=== PATIENT | female | born 1990 | race Caucasian/White ===

== ENCOUNTER 2018-04-16 21:08 | Inpatient (IN) | payer OTHER ==
[2018-04-16] MEDS: SOD CHLORIDE 0.9% 1,000 ML IV ×2 (07:25→23:16)
[2018-04-16] MEDS: LACTATED RINGER'S 1,000 ML IV (22:33)
[2018-04-16 22:44] LABS: ADD UMIC YES; UR ASCORBIC ACID NEGATIVE (NEGATIVE); UR BACTERIA FEW /HPF (NONE SEEN); UR BILIRUBIN (Dip) NEGATIVE (NEGATIVE); UR BLOOD (Dip) NEGATIVE (NEGATIVE); UR CLARITY CLOUDY (CLEAR); UR COLOR YELLOW (YELLOW); UR GLUCOSE (Dip) NEGATIVE (NEGATIVE); UR KETONES (Dip) 1+ mg/dL (NEGATIVE); UR LEUKOCYTE ESTERASE (Dip) 3+ Leu/ul (NEGATIVE); UR MUCUS FEW /HPF (NONE SEEN); UR NITRITE (Dip) NEGATIVE (NEGATIVE); UR RBC 16 /HPF (0-5); UR SPECIFIC GRAVITY (Dip) 1.008 (1.003-1.030); UR SQUAMOUS EPITHELIAL CELL FEW /HPF (FEW); UR TOTAL PROTEIN (Dip) NEGATIVE (NEGATIVE); UR UROBILINOGEN (Dip) NEGATIVE (NEGATIVE); UR WBC 53 /HPF (0-5)
[2018-04-16] MEDS ORDERED: CEFTRIAXONE 1 GM/50 ML (PMX) 50 ML IVPB (23:00)
[2018-04-16] MEDS: CEFTRIAXONE 1 GM/50 ML (PMX) 50 ML IVPB (23:16)
[2018-04-17 00:44] LABS: ADD MAN DIFF? NO
[2018-04-17 00:46] LABS: BASOPHILS % 0.1 % (0.0-2.0); EOSINOPHILS % 0.1 % (0.0-7.0); HEMATOCRIT 32.7 % (37.0-47.0); HEMOGLOBIN 10.5 g/dl (12.0-16.0); LYMPHOCYTES # 0.8 10^3/ul (0.8-2.9); LYMPHOCYTES % 8.9 % (15.0-51.0); MEAN CORPUSCULAR HGB CONC 32.1 g/dl (32.0-37.0); MEAN CORPUSCULAR VOLUME 84.1 fl (82.0-101.0); MONOCYTE # 0.3 10^3/ul (0.3-0.9); MONOCYTES % 3.9 % (0.0-11.0); NEUTROPHIL # 7.6 10^3/ul (1.6-7.5); NEUTROPHILS % 86.5 % (39.0-77.0); PLATELET COUNT 164 10^3/UL (140-415); RED BLOOD COUNT 3.89 10^6/ul (4.20-5.40); RED CELL DISTRIBUTION WIDTH 14.2 % (11.5-14.5)
[2018-04-17 00:46] LABS: WHITE BLOOD COUNT 8.8 10^3/ul (4.8-10.8)
[2018-04-17 01:05] LABS: INR 0.93; PROTIME 12.6 Sec (11.9-14.9)
[2018-04-17 01:06] LABS: PARTIAL THROMBOPLASTIN TIME 31.4 Sec (25.0-35.0)
[2018-04-17] MEDS: LACTATED RINGER'S 1,000 ML IV* (07:00)
[2018-04-17] MEDS: SOD CHLORIDE 0.9% 1,000 ML IV ×3 (07:26→23:00)
[2018-04-17] MEDS: PRENATAL VITAMIN PO (09:14)
[2018-04-17] MEDS: FERROUS SULFATE (EC) 325 MG TAB PO (09:14)
[2018-04-17 15:35] LABS: RAPID PLASMA REAGIN NONREACTIVE (NR)
[2018-04-17] MEDS: CEFTRIAXONE 1 GM/50 ML (PMX) 50 ML IVPB (23:27)
[2018-04-18] MEDS: SOD CHLORIDE 0.9% 1,000 ML IV (06:52)
[2018-04-18] MEDS: PRENATAL VITAMIN PO (09:04)
[2018-04-18] MEDS: FERROUS SULFATE (EC) 325 MG TAB PO (09:04)
== END 2018-04-18 10:45 | disposition home or self-care (01) | DRG 781 ==
LOC: OBT 21:08 → PP1 04-18 08:50 → L-D 21:13 → OBT 22:56 → L-D 22:56
DX: O23.03 Infections of kidney in pregnancy, third trimester (principal); O13.3 Gestational [pregnancy-induced] hypertension without significant proteinuria, third trimester; Z3A.36 36 weeks gestation of pregnancy
CPT/HCPCS: 36415; 81001; 85025; 85610; 85730; 86592; 86850; 86900; 86901; 87086

== ENCOUNTER 2018-05-15 11:25 | Outpatient (CLI) | payer OTHER | END 2018-05-15 13:34 | disposition home or self-care (01) | LOC: OBT 11:25 → L-D 11:25 → OBT 13:34 | DX: O48.0 Post-term pregnancy (principal); Z3A.40 40 weeks gestation of pregnancy | CPT/HCPCS: 76815; 76818 ==

== ENCOUNTER 2018-05-18 16:49 | Inpatient (IN) | payer OTHER ==
[2018-05-18 18:20] LABS: ADD MAN DIFF? NO
[2018-05-18 18:21] LABS: BASOPHILS % 0.2 % (0.0-2.0); EOSINOPHILS # 0.1 10^3/ul (0.0-0.5); EOSINOPHILS % 0.7 % (0.0-7.0); HEMATOCRIT 33.8 % (37.0-47.0); HEMOGLOBIN 10.9 g/dl (12.0-16.0); IMMATURE GRANS #M 0.04 10^3/ul; IMMATURE GRANS % (M) 0.4 %; LYMPHOCYTES # 1.5 10^3/ul (0.8-2.9); LYMPHOCYTES % 16.9 % (15.0-51.0); MEAN CORPUSCULAR HEMOGLOBIN 26.9 pg (29.0-33.0); MEAN CORPUSCULAR HGB CONC 32.2 g/dl (32.0-37.0); MEAN CORPUSCULAR VOLUME 83.5 fl (82.0-101.0); MEAN PLATELET VOLUME 12.2 fl (7.4-10.4); MONOCYTE # 0.5 10^3/ul (0.3-0.9); MONOCYTES % 5.3 % (0.0-11.0); NEUTROPHIL # 6.9 10^3/ul (1.6-7.5); NEUTROPHILS % 76.5 % (39.0-77.0); PLATELET COUNT 173 10^3/UL (140-415); RED BLOOD COUNT 4.05 10^6/ul (4.20-5.40); RED CELL DISTRIBUTION WIDTH 14.7 % (11.5-14.5)
[2018-05-18] MEDS ORDERED: MISOPROSTOL 200 MCG TAB PR (18:30)
[2018-05-18] MEDS ORDERED: METHYLERGONOVINE 0.2 MG INJ IM (18:30)
[2018-05-18] MEDS ORDERED: CARBOPROST 250 MCG INJ IM (18:30)
[2018-05-18] MEDS ORDERED: OXYCODONE/ACETAMINOPHEN (5/325) TAB PO (18:30)
[2018-05-18] MEDS ORDERED: BUTORPHANOL 2 MG INJ IV (18:30)
[2018-05-18] MEDS ORDERED: IBUPROFEN 600 MG TAB PO (18:30)
[2018-05-18] MEDS ORDERED: LIDOCAINE 1% (MPF) 30 ML INJ INJ (18:30)
[2018-05-18 18:41] LABS: INR 0.92; PROTIME 12.4 Sec (11.9-14.9)
[2018-05-18 18:42] LABS: PARTIAL THROMBOPLASTIN TIME 28.6 Sec (25.0-35.0)
[2018-05-18] MEDS: LACTATED RINGER'S 1,000 ML IV* (19:04)
[2018-05-18 21:52] LABS: RAPID PLASMA REAGIN NONREACTIVE (NR)
[2018-05-19] MEDS: LACTATED RINGER'S 1,000 ML IV* ×5 (01:26→12:53)
[2018-05-19] MEDS ORDERED: FENTAnyl 2MCG/ML-ROPIV 0.2% 100 ML (08:01)
[2018-05-19] MEDS ORDERED: NALOXONE (0.4 MG/ML) INJ IV (08:30)
[2018-05-19] MEDS ORDERED: DIPHENHYDRAMINE 50 MG INJ IV (08:30)
[2018-05-19] MEDS ORDERED: FENTAnyl 2MCG/ML-ROPIV 0.2% 100 ML BAG EPI (08:30)
[2018-05-19] MEDS ORDERED: ONDANSETRON 4 MG INJ IV ×2 (08:30→18:00)
[2018-05-19] MEDS: OXYTOCIN 30 UNITS/LR 500 ML IV ×4 (11:53→17:40)
[2018-05-19] MEDS ORDERED: OXYTOCIN 30 UNITS/LR 500 ML IV (12:00)
[2018-05-19] MEDS ORDERED: HYDROCODONE/APAP (5/325) TAB PO (18:00)
[2018-05-19] MEDS ORDERED: ACETAMINOPHEN 325 MG TAB PO (18:00)
[2018-05-19] MEDS ORDERED: OXYCODONE/ASPIRIN (4.88/325) TAB PO ×2 (18:00)
[2018-05-19] MEDS ORDERED: DIBUCAINE 1% 30 GM OINT PR (18:00)
[2018-05-19] MEDS: IBUPROFEN 600 MG TAB PO ×2 (18:09→23:47)
[2018-05-19] MEDS: LANOLIN 7 GM TUBE TOP (18:12)
[2018-05-19] MEDS: BENZOCAINE 20% 56 ML SPRAY TOP (18:12)
[2018-05-19] MEDS: WITCH HAZEL/GLYCERIN PAD PR (18:12)
[2018-05-19] MEDS: SENNA/DOCUSATE NA (8.6MG/50MG) TAB PO (21:32)
[2018-05-20] MEDS: HYDROCODONE/APAP (5/325) TAB PO (02:35)
[2018-05-20] MEDS: IBUPROFEN 600 MG TAB PO ×3 (05:42→17:30)
[2018-05-20 08:22] LABS: ADD MAN DIFF? NO
[2018-05-20 08:30] LABS: WHITE BLOOD COUNT 11.6 10^3/ul (4.8-10.8)
[2018-05-20 08:30] LABS: BASOPHILS % 0.2 % (0.0-2.0); EOSINOPHILS # 0.1 10^3/ul (0.0-0.5); EOSINOPHILS % 0.7 % (0.0-7.0); HEMATOCRIT 29.8 % (37.0-47.0); HEMOGLOBIN 9.5 g/dl (12.0-16.0); LYMPHOCYTES # 2.4 10^3/ul (0.8-2.9); LYMPHOCYTES % 20.7 % (15.0-51.0); MEAN CORPUSCULAR HEMOGLOBIN 26.5 pg (29.0-33.0); MEAN CORPUSCULAR HGB CONC 31.9 g/dl (32.0-37.0); MEAN PLATELET VOLUME 12.5 fl (7.4-10.4); MONOCYTE # 0.6 10^3/ul (0.3-0.9); MONOCYTES % 4.8 % (0.0-11.0); NEUTROPHIL # 8.5 10^3/ul (1.6-7.5); NEUTROPHILS % 73.3 % (39.0-77.0); PLATELET COUNT 133 10^3/UL (140-415); RED BLOOD COUNT 3.59 10^6/ul (4.20-5.40); RED CELL DISTRIBUTION WIDTH 15.2 % (11.5-14.5)
[2018-05-20] MEDS: SENNA/DOCUSATE NA (8.6MG/50MG) TAB PO ×2 (09:36→21:16)
[2018-05-21] MEDS: IBUPROFEN 600 MG TAB PO ×4 (00:07→17:15)
[2018-05-21] MEDS: SENNA/DOCUSATE NA (8.6MG/50MG) TAB PO (09:05)
[2018-05-21] MEDS: MEASLES,MUMPS,RUBELLA VACCINE INJ SC* (09:06)
== END 2018-05-21 18:20 | disposition home or self-care (01) | DRG 775 ==
LOC: L-D 16:49 → PP1 05-19 18:01
PROVIDERS: Obstetrics & Gynecology
PROC: 10E0XZZ Delivery of Products of Conception, External Approach (ICD-10-PCS; principal; 2018-05-19)
PROC: 0HQ9XZZ Repair Perineum Skin, External Approach (ICD-10-PCS; 2018-05-19)
DX: O48.0 Post-term pregnancy (principal); O69.1XX0 Labor and delivery complicated by cord around neck, with compression, not applicable or unspecified; O70.0 First degree perineal laceration during delivery; Z37.0 Single live birth; Z3A.40 40 weeks gestation of pregnancy
CPT/HCPCS: 62319; 76815; 85025; 85610; 85730; 86592; 86850; 86900; 86901; 88307; 99464

== ENCOUNTER 2018-10-02 10:13 | Day surgery (SDC) | payer OTHER ==
[~2018-10-02 10:13] MED LIST: CEFAZOLIN 1 GM INJ; DESFLURANE 15 MIN
[2018-10-02] MEDS ORDERED: FENTAnyl 50 MCG/ML VIAL IV ×3 (12:30)
[2018-10-02] MEDS ORDERED: ALBUTEROL 0.083% (NEB) 2.5 MG/3 ML AMP HHN (12:30)
[2018-10-02] MEDS ORDERED: DIPHENHYDRAMINE 50 MG INJ IV (12:30)
[2018-10-02] MEDS ORDERED: HYDROmorphONE 1 MG/5 ML IV SYRINGE IV (12:30)
[2018-10-02] MEDS ORDERED: METOCLOPRAMIDE 10 MG INJ IV (12:30)
[2018-10-02] MEDS ORDERED: ROPIVACAINE 0.5 % 30 ML VIAL (12:54)
[2018-10-02] MEDS ORDERED: FENTAnyl 50 MCG/ML VIAL (12:54)
[2018-10-02] MEDS ORDERED: NEOSTIGMINE 3 MG/3 ML SYRINGE (13:11)
[2018-10-02] MEDS ORDERED: PROPOFOL 20 ML (13:11)
[2018-10-02] MEDS ORDERED: SUCCINYLCHOLINE CHLORIDE 100 MG/5 ML SYG IV (13:11)
[2018-10-02] MEDS ORDERED: GLYCOPYRROLATE 0.4 MG INJ (13:11)
[2018-10-02] MEDS ORDERED: LIDOCAINE 100 MG SYRINGE (13:11)
[2018-10-02] MEDS ORDERED: ROCURONIUM 50 MG INJ (13:11)
[2018-10-02] MEDS: BUPIVACAINE 0.5%/EPI (SDV) 30 ML INJ (13:44)
[2018-10-02] MEDS: MEPERIDINE 25 MG INJ IV (14:07)
[2018-10-02] MEDS: ONDANSETRON 4 MG INJ IV (14:08)
[2018-10-02] MEDS: HYDROmorphONE 1 MG/5 ML IV SYRINGE IV ×2 (14:21→14:30)
[2018-10-02] MEDS: OXYCODONE/ACETAMINOPHEN (5/325) TAB PO (15:41)
== END 2018-10-02 15:40 | disposition home or self-care (01) ==
LOC: SDS 10:13
DX: Z30.2 Encounter for sterilization (principal)
CPT/HCPCS: 58600; 88302